=== PATIENT | male | born 1975 | race African-American/Black ===

== ENCOUNTER 2016-11-20 07:16 | Day surgery (SDC) | payer OTHER ==
[2016-11-17 16:21] VITALS: Ht 185.4 cm; Wt 114.6 kg
[2016-11-20] VITALS (12 sets, daily range): BP systolic 100–128; BP diastolic 44–74; PULSE 64–102; RESP 14–24
[~2016-11-20] VITALS: Ht 185.4 cm; Wt 114.6 kg
[~2016-11-20 07:16] MED LIST: LIDOCAINE 2%/EPI MPF (SDV) 20 ML VIAL INJ ONE
[2016-11-20] MEDS ORDERED: MTF1000T PO (08:23)
[2016-11-20] MEDS ORDERED: LISI20TA11 PO (08:24)
[2016-11-20] MEDS ORDERED: AMLO-147 PO (08:24)
[2016-11-20] MEDS ORDERED: HYDR25TA6 PO (08:25)
[2016-11-20 08:38] LABS: ADD UMIC NO; BASOPHILS % 0.8 % (0.0-2.0); EOSINOPHILS # 0.1 10^3/ul (0.0-0.5); HEMATOCRIT 41.5 % (42.0-52.0); HEMOGLOBIN 13.1 g/dl (14.0-18.0); LYMPHOCYTES # 1.5 10^3/ul (0.8-2.9); LYMPHOCYTES % 30.5 % (15.0-51.0); MEAN CORPUSCULAR HEMOGLOBIN 25.7 pg (29.0-33.0); MEAN CORPUSCULAR HGB CONC 31.6 g/dl (32.0-37.0); MEAN CORPUSCULAR VOLUME 81.4 fl (82.0-101.0); MEAN PLATELET VOLUME 10.5 fl (7.4-10.4); MONOCYTE # 0.3 10^3/ul (0.3-0.9); MONOCYTES % 7.1 % (0.0-11.0); NEUTROPHIL # 2.9 10^3/ul (1.6-7.5); NEUTROPHILS % 60.4 % (39.0-77.0); PLATELET COUNT 302 10^3/UL (140-415); RED CELL DISTRIBUTION WIDTH 13.3 % (11.5-14.5); UR ASCORBIC ACID NEGATIVE (NEGATIVE); UR BILIRUBIN (Dip) NEGATIVE (NEGATIVE); UR BLOOD (Dip) NEGATIVE (NEGATIVE); UR CLARITY CLEAR (CLEAR); UR COLOR YELLOW (YELLOW); UR GLUCOSE (Dip) NEGATIVE (NEGATIVE); UR KETONES (Dip) NEGATIVE (NEGATIVE); UR LEUKOCYTE ESTERASE (Dip) NEGATIVE Leu/ul (NEGATIVE); UR NITRITE (Dip) NEGATIVE (NEGATIVE); UR SPECIFIC GRAVITY (Dip) 1.014 (1.003-1.030); UR TOTAL PROTEIN (Dip) NEGATIVE (NEGATIVE); UR UROBILINOGEN (Dip) NEGATIVE (NEGATIVE); WHITE BLOOD COUNT 4.8 10^3/ul (4.8-10.8)
[2016-11-20] MEDS ORDERED: BUPIVACAINE 0.25% (MPF) 30 ML INJ ONE (08:40)
[2016-11-20] MEDS ORDERED: SUCCINYLCHOLINE CHLORIDE 100 MG/5 ML SYG IV ONE (08:55)
[2016-11-20] MEDS ORDERED: PROPOFOL 20 ML ONE (08:55)
[2016-11-20] MEDS ORDERED: ROCURONIUM 50 MG INJ ONE (08:55)
--- NOTE | 2016-11-20 08:55 | HPN ---
Date/Time of Note Date/Time of Note DATE: 11/20/16 TIME: 08:55 Interval H&P Admission Note Pt. seen H&P reviewed: No system changes JOSE TRAN MD Nov 20, 2016 08:55
[2016-11-20] MEDS ORDERED: CEFAZOLIN 1 GM INJ ONE (08:56)
[2016-11-20] MEDS ORDERED: FENTAnyl 50 MCG/ML VIAL ONE (08:56)
[2016-11-20] MEDS ORDERED: ONDANSETRON 4 MG INJ ONE (08:56)
[2016-11-20] MEDS ORDERED: HYDROmorphONE (0.2 MG/ML) 10ML SYG IV PRN ×3 (09:00)
[2016-11-20] MEDS ORDERED: hydrALAzine 20 MG INJ IV PRN (09:00)
[2016-11-20] MEDS ORDERED: ONDANSETRON 4 MG INJ IV PRN (09:00)
[2016-11-20] MEDS ORDERED: LABETALOL HCL 20MG INJ IV PRN (09:00)
[2016-11-20] MEDS ORDERED: FENTAnyl 50 MCG/ML VIAL IV PRN ×2 (09:00)
[2016-11-20] MEDS ORDERED: MEPERIDINE 25 MG INJ IV PRN (09:00)
--- NOTE | 2016-11-20 09:03 | SIPON ---
Date/Time of Note Date/Time of Note DATE: 11/20/16 TIME: 09:01 Operative Report Preoperative Diagnosis retained deep metal Postoperative Diagnosis same Operation/Procedure Performed removal deep metal Surgeon juliano tran sales assistant displays none Anesthesia: MAC Estimated blood loss: minimal Transfusion Required none Specimen none Grafts/Implants none Complications none JOSE TRAN MD Nov 20, 2016 09:03
[2016-11-20] MEDS ORDERED: PHENYLephrine (100 MCG/ML) 5ML SYG ONE (10:47)
[2016-11-20] MEDS ORDERED: LIDOCAINE 2%/EPI 30 ML INJ ONE (11:00)
--- NOTE | 2016-11-20 12:22 | OPR ---
DATE OF OPERATION: 11/20/2016 PREOPERATIVE DIAGNOSES: 1. Status post highly comminuted distal radius fracture, left. 2. Disorganization of the radial carpal joint. POSTOPERATIVE DIAGNOSES: 1. Status post highly comminuted distal radius fracture, left. 2. Disorganization of the radial carpal joint. OPERATIVE PROCEDURE: Stage 1 of a 2-stage wrist fusion; namely we removed the previously placed volar and dorsal plates and screws in preparation at a later date for wrist fusion. SURGEON: Jose Danielle MD ELECTRONIC TRANSACTION IMPLEMENTER: Staff. ANESTHESIA: General. SURGICAL PAUSE: I examined the patient in the preoperative holding area, I marked the site, I confirmed the operative procedure planned on the patient, spouse, mother, family with 4-5 family members present. We regulo the surgical incision and confirmed the operative procedure planned was that this patient is going to need a wrist fusion to take the metal out just to get it out of the way so that we would be prepared to do a wrist fusion later and let the screw holes fill in. That continues to be their plan in the postoperative period. Informed consent, we talked about the risks and hazards of surgery, talked about operative mortality, wound infection, nerve injury, good results, bad results and potential complications. OPERATIVE FINDINGS AT SURGERY: The patient was taken to surgery and he had 2 plates, a dorsal spanning plate and a volar very long distal radius fracture, and there may be some non-union of the distal radius as well. Through the 2 incisions were identified all the metal and removed it except for 2 well hidden screws which we left . The wounds were closed in layers of Vicryl deep and Vicryl subcuticular. The wrist is reasonably stable. We closed the wounds and put it in a long arm sugar tong splint. We will let everything settle down and heal, then take him back and do a long sliding graft to the carpus off the radius,fuse the carpus and the non-union. I suspect at the same time we are going to have to do an ulnar shortening osteotomy or a distal ulnar resection. The operative procedure was a little over an hour, and the patient is awake in recovery. Discharge medications included hydrocodone, acetaminophen and Keflex. Follow up will be in our office in a week. My plan is to keep him in a cast, probably initially a long arm sugar tong cast , followed by a short arm cast until the time of the wrist fusion, however long that takes. Dictated By: Jose Danielle MD /lester/merissa /Document#: [id number] MTDD
--- NOTE | 2016-11-20 12:28 | RADRPT ---
PROCEDURE: Intraoperative imaging of the left wrist with fluoroscopy. CLINICAL INDICATION: Left wrist pain. Hardware removal. Intraoperative. TECHNIQUE: 11 images of the left wrist were obtained in the operating room with an image intensifi er. No radiologist was in attendance. Fluoroscopy time is 24 seconds. COMPARISON: No prior study is available for comparison. FINDINGS: Initial images demonstrate plates and screws in the distal radius and subsequent images demonstrate removal of the plate. There is a comminuted displaced fracture of the distal radius. IMPRESSION: 1. Intraoperative imaging of the left wrist. RPTAT: QQ .Win Robledo MD, Date Time Electronically viewed and signed by .Win Robledo MD, on 11/20/2016 12:28 .R/
--- NOTE | 2016-11-22 14:06 | RADRPT ---
Vent Rate: 64 bpm RR Interval: 0 msec MD Interval: 166 msec QRS Duration: 90 msec QT Interval: 418 msec QTC Interval: 431 msec P-R-T [place]: 46 - 49 - 47 degrees Normal sinus rhythm Normal ECG Electronically Signed By: Stanton Lizarraga [id number]
== END 2016-11-20 14:40 | disposition home or self-care (01) ==
LOC: SUR 07:16 → SDS 07:16 → SUR 14:40
PROVIDERS: ATTEND Orthopaedic Surgery Hand Surgery
DX: Z45.89 Encounter for adjustment and management of other implanted devices (principal); I10 Essential (primary) hypertension; E11.9 Type 2 diabetes mellitus without complications; E66.9 Obesity, unspecified; Z68.33 Body mass index [BMI] 33.0-33.9, adult
CPT/HCPCS: 20680; 73110; 81003; 82962; 85025; 88300; 93005; J0690; J2405; J3010; Z7512; Z7610; J2370; J7999